=== PATIENT | male | born 1975 ===

== ENCOUNTER 2017-03-21 16:25 | Observation (INO) | payer MEDICAID, OTHER ==
[2017-03-21 17:55] LABS: BASO % 0.4 % (0.0-2.0); EOS # 0.1 K/uL (0.0-0.7); HEMATOCRIT 43.8 % (35.0-51.0); LYMPH # 1.7 K/uL (1.0-4.3); LYMPH % 16.6 % (20.0-40.0); MEAN CELL VOLUME 89.9 fL (80.0-94.0); MEAN CORPUSCULAR HEMOGLOBIN 30.9 pg (27.0-31.0); MEAN CORPUSCULAR HGB CONC 34.3 g/dL (33.0-37.0); MEAN PLATELET VOLUME 8.1 fL (7.2-11.7); MONO # 0.8 K/uL (0.0-0.8); MONO % 8.1 % (0.0-10.0); RED CELL DISTRIBUTION WIDTH 13.6 % (11.5-14.5); WHITE BLOOD COUNT 10.4 K/uL (4.8-10.8)
[2017-03-21 18:03] LABS: CHLORIDE 103 mmol/L (98-107); POTASSIUM 3.9 mmol/L (3.6-5.2); SODIUM 147 mmol/L (132-148)
[2017-03-21 18:05] LABS: AST/SGOT 17 U/L (17-59); BILIRUBIN,TOTAL 0.7 mg/dL (0.2-1.3); CARBON DIOXIDE 25 mmol/L (22-30); GFR AFRICAN-AMERICAN > 60
[2017-03-21 18:06] LABS: ALB/GLOB RATIO 1.3 (1.0-2.1); ALKALINE PHOSPHATASE 76 U/L (38-126); ALT/SGPT 33 U/L (21-72); BLOOD UREA NITROGEN 15 mg/dL (9-20); CALCIUM 8.8 mg/dl (8.6-10.4); GLUCOSE,RANDOM 103 mg/dL (75-110); TOTAL PROTEIN 8.1 g/dL (6.3-8.3)
[2017-03-21 18:07] LABS: RBC URINE 7 /hpf (0-3); URINE BACTERIA RARE (<OCC); URINE BILIRUBIN NEGATIVE (NEGATIVE); URINE BLOOD 1+ (NEGATIVE); URINE COLOR Yellow (YELLOW); URINE GLUCOSE (UA) NORMAL (Normal); URINE KETONE NEGATIVE (NEGATIVE); URINE LEUKOCYTE ESTERASE NEG Leu/uL (Negative); URINE PROTEIN NEGATIVE (NEGATIVE); URINE UROBILINOGEN NORMAL mg/dL (0.2-1.0); WBC URINE < 1 /hpf (0-5)
[2017-03-21 18:21] LABS: PARTIAL THROMBOPLASTIN TIME 29 SECONDS (21-34)
--- NOTE | 2017-03-21 18:40 | C.PDOC ---
History Of Present Illness <Rupa Carpoi - Last Filed: 03/21/17 19:16> <Mesha Castro - Last Filed: 03/21/17 19:51> 42 year old male presents to the ED with chest pain, headache, and feeling "shaky." Patient notes anxiety attacks over the last two weeks and denies having experiencing them prior to that. His doctor have him a prescription for Xanax but does not like to take them because it makes him "sleepy." Patient denies shortness of breath, weakness, numbness, or other complaints at this time. (Rupa Carpio) History Per: Patient History/Exam Limitations: no limitations Current Symptoms Are (Timing): Still Present Quality: Pressure Associated Symptoms: denies: Nausea, Dyspnea, Diaphoresis, Syncope Exacerbating Factors: None Recent travel outside of the [place]: No <Rupa Carpio - Last Filed: 03/21/17 19:16> <Mesha Castro - Last Filed: 03/21/17 19:51> Time Seen by Provider: 03/21/17 16:34 Chief Complaint (Nursing): Chest Pain Past Medical History Reviewed: Historical Data, Nursing Documentation, Vital Signs - Medical History PMH: Anxiety Family History: States: Unknown Family Hx - Social History Hx Alcohol Use: Yes Hx Substance Use: No - Immunization History Hx Tetanus Toxoid Vaccination: No Hx Influenza Vaccination: No Hx Pneumococcal Vaccination: No <Rupa Carpoi - Last Filed: 03/21/17 19:16> Review Of Systems Constitutional: Positive for: Other (feels "shakey" ). Negative for: Fever, Chills Cardiovascular: Positive for: Chest Pain. Negative for: Palpitations Gastrointestinal: Negative for: Nausea, Vomiting, Abdominal Pain, Diarrhea Neurological: Positive for: Headache. Negative for: Weakness, Numbness <Rupa Carpio - Last Filed: 03/21/17 19:16> Physical Exam - Physical Exam Appears: Non-toxic, No Acute Distress, Other (Patient is tremulous on exam. ) Skin: Warm, Dry Head: Atraumatic Eye(s): bilateral: Normal Inspection Oral Mucosa: Moist Neck: Supple Chest: Symmetrical, No Deformity, No Tenderness Cardiovascular: Rhythm Regular Respiratory: Normal Breath Sounds, No Rales, No Rhonchi, No Wheezing Gastrointestinal/Abdominal: Soft, No Tenderness, No Distention, No Guarding, No Rebound Extremity: Normal ROM, No Tenderness Neurological/Psych: Oriented x3, Normal Speech, Normal Cognition, Normal Motor, Normal Sensation <Rupa Carpio - Last Filed: 03/21/17 19:16> ED Course And Treatment - Laboratory Results Result Diagrams: 03/21/17 17:52 03/21/17 17:52 ECG: Interpreted By Me, Viewed By Me ECG Rhythm: Sinus Rhythm ECG Interpretation: No Acute Changes Interpretation Of ECG: Occasional PVCs. Rate From EC O2 Sat by Pulse Oximetry: 97 (room air ) - Radiology CXR: Interpreted by Me, Viewed By Me CXR Interpretation: Yes: No Acute Disease Progress Note: EKG, CXR, and blood work including thyroid function was ordered. Patient was given ativan. At 19:00 case was signed out to . TSH and dispo are pending. <Rupa Carpio - Last Filed: 03/21/17 19:16> - Laboratory Results Result Diagrams: 03/21/17 17:52 03/21/17 17:52 Progress Note: Pt was signed out to me at 7pm by Dr. Carpenter/CHRISTINA Carpio to f/up TSH and admit pt for observation due to cocaine chest pain. Pt admit to snorting cocaine last night. Reassessment Condition: Improved <Mesha Castro E - Last Filed: 03/21/17 19:51> Disposition - Disposition Disposition Time: 19:00 <Rupa Carpio - Last Filed: 03/21/17 19:16> Discussed With : Oral Guadarrama Comment: He accepted pt on hospitalist service. Doctor Will See Patient In The: Hospital Counseled Patient/Family Regarding: Studies Performed, Diagnosis - Disposition Disposition Time: 19:50 <Mesha Castro E - Last Filed: 03/21/17 19:51> - Disposition Disposition: HOSPITALIZED Condition: FAIR - Clinical Impression Clinical Impression: Chest pain, Cocaine abuse - Scribe Statement The provider has reviewed the documentation as recorded by the Scribe <Rupa Carpio - Last Filed: 03/21/17 19:16> <Mesha Castro E - Last Filed: 03/21/17 19:51> - Scribe Statement Chani Feldman All medical record entries made by the Scribe were at my direction and personally dictated by me. I have reviewed the chart and agree that the record accurately reflects my personal performance of the history, physical exam, medical decision making, and the department course for this patient. I have also personally directed, reviewed, and agree with the discharge instructions and disposition. (Rupa Carpio) Physician Patient Turnover Patient Signed Over To: Mesha Castro Handoff Comments: labs/dispo <Rupa Carpio - Last Filed: 03/21/17 19:16>
[2017-03-21 19:24] LABS: THYROID STIMULATING HORMONE 2.13 mIU/L (0.46-4.68)
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
[2017-03-22 01:45] VITALS: RESP 20
--- NOTE | 2017-03-22 06:12 | RAD ---
PROCEDURE: CHEST RADIOGRAPH, 1 VIEW HISTORY: Chest pain COMPARISON: None available. FINDINGS: LUNGS: Mild venous congestion. Upper lobe granulomatous changes. PLEURA: No pneumothorax or pleural fluid seen. CARDIOVASCULAR: Normal. OSSEOUS STRUCTURES: No significant abnormalities. VISUALIZED UPPER ABDOMEN: Normal. OTHER FINDINGS: None. IMPRESSION: Mild venous congestion. Upper lobe granulomatous changes.
[2017-03-22 07:38] LABS: BASO % 0.4 % (0.0-2.0); EOS # 0.1 K/uL (0.0-0.7); EOS % 1.4 % (0.0-4.0); HEMATOCRIT 40.2 % (35.0-51.0); LYMPH # 2.6 K/uL (1.0-4.3); LYMPH % 35.2 % (20.0-40.0); MEAN CELL VOLUME 90.4 fL (80.0-94.0); MEAN CORPUSCULAR HEMOGLOBIN 30.2 pg (27.0-31.0); MEAN CORPUSCULAR HGB CONC 33.4 g/dL (33.0-37.0); MEAN PLATELET VOLUME 8.6 fL (7.2-11.7); MONO # 0.6 K/uL (0.0-0.8); MONO % 7.7 % (0.0-10.0); RED CELL DISTRIBUTION WIDTH 13.5 % (11.5-14.5); WHITE BLOOD COUNT 7.5 K/uL (4.8-10.8)
[2017-03-22 08:14] LABS: CHLORIDE 102 mmol/L (98-107); POTASSIUM 3.7 mmol/L (3.6-5.2); SODIUM 144 mmol/L (132-148)
[2017-03-22 08:16] LABS: ALB/GLOB RATIO 1.3 (1.0-2.1); ALKALINE PHOSPHATASE 65 U/L (38-126); AST/SGOT 16 U/L (17-59); BILIRUBIN,TOTAL 0.9 mg/dL (0.2-1.3); BLOOD UREA NITROGEN 14 mg/dL (9-20); CARBON DIOXIDE 27 mmol/L (22-30); CHOLESTEROL 146 mg/dL (0-199); GFR AFRICAN-AMERICAN > 60; GLUCOSE,RANDOM 98 mg/dL (75-110)
[2017-03-22 08:17] LABS: ALT/SGPT 29 U/L (21-72); CALCIUM 8.8 mg/dl (8.6-10.4)
[2017-03-22 08:50] LABS: THYROID STIMULATING HORMONE 2.26 mIU/L (0.46-4.68)
--- NOTE | 2017-03-22 13:59 | CP.PCM.PN ---
<Bam Gillis - Last Filed: 03/22/17 13:53> Subjective - Date & Time of Evaluation Date of Evaluation: 03/22/17 Time of Evaluation: 13:53 - Subjective Subjective: PGY1 Note for Dr. Arizmendi HPI: Patient seen and examined at bedside. Stated his chest pain comes on infrequently and feels stabbing and then becomes like a "squeezing" sensation that is unrelated to activity. It is not related to food. Located in the epigastrum. Reproducible on exam. Patient smoked for 20 years, quit for a short time, smoking again. Overweight. Poor diet. wakes up every every night trying to catch his breath. Feels tired thru the day. Feels like he snores. Angry that his girlfriend is asking him to send her money even though she may be romantically involved with another man. States when he thinks about this he gets extremely agitated, mind races and starts he shaking. Objective - Vital Signs/Intake and Output Vital Signs (last 24 hours): Temp Pulse Resp BP Pulse Ox 97.7 F 94 H 20 133/85 99 03/22/17 08:42 03/22/17 10:04 03/22/17 08:42 03/22/17 08:42 03/22/17 08:42 - Labs Labs: 03/22/17 07:24 03/22/17 07:24 PT 11.2 SECONDS (9.7-12.2) 03/21/17 17:52 INR 1.0 03/21/17 17:52 APTT 29 SECONDS (21-34) 03/21/17 17:52 - Constitutional Appears: Well, Non-toxic, No Acute Distress - Head Exam Head Exam: ATRAUMATIC, NORMAL INSPECTION, NORMOCEPHALIC - Eye Exam Eye Exam: EOMI - ENT Exam ENT Exam: Mucous Membranes Moist - Respiratory Exam Respiratory Exam: Clear to Ausculation Bilateral, NORMAL BREATHING PATTERN - Cardiovascular Exam Cardiovascular Exam: REGULAR RHYTHM - GI/Abdominal Exam GI & Abdominal Exam: Soft, Normal Bowel Sounds. absent: Distended, Tenderness - Extremities Exam Extremities Exam: absent: Joint Swelling, Tenderness - Neurological Exam Neurological Exam: Alert, Awake, Oriented x3 - Psychiatric Exam Psychiatric exam: Agitated, Anxious - Skin Skin Exam: Dry, Intact, Normal Color, Warm Assessment and Plan - Assessment and Plan (Free Text) Assessment: Chest pain R/O ACS * Telemetry * KELLI: Negative * EKG: Sinus rhythm, with occasional PVCs * TSH: 2.13 * Lipid Panel * TG 170 * Chol 146 * LDL 105 * HDL 34 * Crestor 20 PO QD Cards (Alec) - F/U Reccs * Stress test? Anxiety Psychiatry Consult, Dr. Carballo * F/u recommendation VALERIANO * overnight sleep study for Obstructive sleep apnea * F/U at clinic for workup Cocaine abuse UDS: Positive for cocaine metabolites Prophylactic measure Ambulates Scds <Anthony Arizmendi - Last Filed: 03/22/17 19:04> Objective - Vital Signs/Intake and Output Vital Signs (last 24 hours): Temp Pulse Resp BP Pulse Ox 97.5 F L 59 L 20 120/74 97 03/22/17 15:00 03/22/17 18:00 03/22/17 15:00 03/22/17 15:00 03/22/17 15:00 - Medications Medications: Current Medications Rosuvastatin Calcium (Crestor) 20 mg PO HS MACHO - Labs Labs: 03/22/17 07:24 03/22/17 07:24 PT 11.2 SECONDS (9.7-12.2) 03/21/17 17:52 INR 1.0 03/21/17 17:52 APTT 29 SECONDS (21-34) 03/21/17 17:52 Attending/Attestation - Attestation I have personally seen and examined this patient.: Yes I have fully participated in the care of the patient.: Yes I have reviewed all pertinent clinical information, including history, physical exam and plan: Yes Notes (Text): 03/22/17 19:02 Patient was seen and examined at 3 PM Exam, Assessment and Plan were thoroughly gone over with the resident. Pain in the chest was reproducible at the 3rd/4th left intercostal space Will speak with Dr. Michael concerning if further Cardiology workup is needed. Anthony Arizmendi D.O.
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
--- NOTE | 2017-03-23 00:16 | CARD ---
APPROVED REPORT EKG Measurement Heart [id number] <Conclusion> Normal sinus rhythm Normal ECG
--- NOTE | 2017-03-23 00:28 | CARD ---
APPROVED REPORT EKG Measurement Heart [id number] <Conclusion> Sinus rhythm with occasional premature ventricular complexes and fusion complexes Otherwise normal ECG
[2017-03-23 00:46] VITALS: O2SAT 98
--- NOTE | 2017-03-23 06:23 | CP.PCM.DIS ---
Addendum entered and electronically signed by Bam Gillis DO 03/23/17 16: 23: Hospital Course Patient is a 42 year old male who presents the ED with complaints of chest pressure, headache and B/L UE and LE shakiness that started today while watching TV with family and friends, with symptoms lasting between 30mins to an hour. Patient reports that these symptoms started a week ago, with his first episode last week Tuesday and his second episode last week . Patient describes his chest pain as a 8/10 intermittent chest pressure without radiation. Patient reports that these episodes lasted an hour and was alleviated with a "calming pill" that was given to him by his brother and sister -in-law. Patient stated that his first episode was after a phone conversation with his ex-. Patient reports that he has been dealing with new life stressors due to his recent divorce from his in [place]. Patient did report that he had about 10-11 (24 oz) beer yesterday and does have a history of cocaine use, with last use being 1 months ago. Patient admits to fever, headache, dizziness, blurry vision, chest pain, palpitation, diaphoresis but denies SOB, nausea, vomiting, abdominal pain. Patient is a 42 year old male presented to the ED with chest pain, headache, and feeling shaky. An EKG was done on admission in the ER. The study noted sinus rhythm with occasional premature ventricular complexes and fusion complexes. Due to the patients history of anxiety and hearing non-threatening voice, Dr. Hunt was consulted. Because of his episodes of shakiness and chest tightening, Dr. Michael was consulted and cleared him for discharge. Dr. Hunt stated the patient was stable for discharge. Dr. Hunt recommends him to f/u in the clinic for care of major depressive disorder. Patient is well appearing at bedside and much calmer than our initial encounter. Patient is ready for discharge and will be given the appropriate materials need to schedule an appointment in the clinic. Original Note: <Bam Gillis - Last Filed: 03/23/17 06:21> Provider - Provider Date of Admission: 03/21/17 19:55 Attending physician: Oral Guadarrama MD Primary care physician: Clinic Consults: Cards: Alec Psych: Gilbert Time Spent in preparation of Discharge (in minutes): 45 Diagnosis - Discharge Diagnosis (1) Major depression Status: Chronic Priority: Medium Hospital Course - Lab Results Lab Results: Most Recent Lab Values WBC 7.5 K/uL (4.8-10.8) 03/22/17 07:24 RBC 4.45 Mil/uL (4.40-5.90) 03/22/17 07:24 Hgb 13.4 g/dL (12.0-18.0) 03/22/17 07:24 Hct 40.2 % (35.0-51.0) 03/22/17 07:24 MCV 90.4 fL (80.0-94.0) 03/22/17 07:24 MCH 30.2 pg (27.0-31.0) 03/22/17 07:24 MCHC 33.4 g/dL (33.0-37.0) 03/22/17 07:24 RDW 13.5 % (11.5-14.5) 03/22/17 07:24 Plt Count 231 K/uL (130-400) 03/22/17 07:24 MPV 8.6 fL (7.2-11.7) 03/22/17 07:24 Neut % (Auto) 55.3 % (50.0-75.0) 03/22/17 07:24 Lymph % (Auto) 35.2 % (20.0-40.0) 03/22/17 07:24 Beadle % (Auto) 7.7 % (0.0-10.0) 03/22/17 07:24 Eos % (Auto) 1.4 % (0.0-4.0) 03/22/17 07:24 Baso % (Auto) 0.4 % (0.0-2.0) 03/22/17 07:24 Neut # 4.1 K/uL (1.8-7.0) 03/22/17 07:24 Lymph # 2.6 K/uL (1.0-4.3) 03/22/17 07:24 Beadle # 0.6 K/uL (0.0-0.8) 03/22/17 07:24 Eos # 0.1 K/uL (0.0-0.7) 03/22/17 07:24 Baso # 0.0 K/uL (0.0-0.2) 03/22/17 07:24 PT 11.2 SECONDS (9.7-12.2) 03/21/17 17:52 INR 1.0 03/21/17 17:52 APTT 29 SECONDS (21-34) 03/21/17 17:52 D-Dimer, Quantitative < 200 ng/mlDDU (0-243) 03/21/17 17:52 Sodium 144 mmol/L (132-148) 03/22/17 07:24 Potassium 3.7 mmol/L (3.6-5.2) 03/22/17 07:24 Chloride 102 mmol/L (98-107) 03/22/17 07:24 Carbon Dioxide 27 mmol/L (22-30) 03/22/17 07:24 Anion Gap 18 (10-20) 03/22/17 07:24 BUN 14 mg/dL (9-20) 03/22/17 07:24 Creatinine 1.0 MG/DL (0.8-1.5) 03/22/17 07:24 Est GFR ( Amer) > 60 03/22/17 07:24 Est GFR (Non-Af Amer) > 60 03/22/17 07:24 Random Glucose 98 mg/dL (75-110) 03/22/17 07:24 Hemoglobin A1c 5.7 % (4.2-6.5) 03/22/17 07:24 Calcium 8.8 mg/dl (8.6-10.4) 03/22/17 07:24 Total Bilirubin 0.9 mg/dL (0.2-1.3) 03/22/17 07:24 AST 16 U/L (17-59) L 03/22/17 07:24 ALT 29 U/L (21-72) 03/22/17 07:24 Alkaline Phosphatase 65 U/L (38-126) 03/22/17 07:24 Total Creatine Kinase 62 U/L (55-170) 03/22/17 07:24 CK-MB (Mass) 1.30 ng/mL (0.0-3.38) 03/22/17 07:24 Troponin I < 0.0120 ng/mL (0.00-0.120) 03/21/17 17:52 Troponin I, Quant < 0.0120 ng/mL (0.00-0.120) 03/22/17 07:24 Total Protein 7.0 g/dL (6.3-8.3) 03/22/17 07:24 Albumin 4.0 g/dL (3.5-5.0) 03/22/17 07:24 Globulin 3.0 gm/dL (2.2-3.9) 03/22/17 07:24 Albumin/Globulin Ratio 1.3 (1.0-2.1) 03/22/17 07:24 Triglycerides 170 mg/dL (0-149) H 03/22/17 07:24 Cholesterol 146 mg/dL (0-199) 03/22/17 07:24 LDL Cholesterol Direct 105 mg/dL (0-129) 03/22/17 07:24 HDL Cholesterol 34 mg/dL (30-70) 03/22/17 07:24 TSH 3rd Generation 2.26 mIU/L (0.46-4.68) 03/22/17 07:24 Urine Color Yellow (YELLOW) 03/21/17 17:52 Urine Clarity Clear (Clear) 03/21/17 17:52 Urine pH 6.0 (5.0-8.0) 03/21/17 17:52 Ur Specific [place] 1.015 (1.003-1.030) 03/21/17 17:52 Urine Protein Negative mg/dL (NEGATIVE) 03/21/17 17:52 Urine Glucose (UA) Normal mg/dL (Normal) 03/21/17 17:52 Urine Ketones Negative mg/dL (NEGATIVE) 03/21/17 17:52 Urine Blood 1+ (NEGATIVE) H 03/21/17 17:52 Urine Nitrate Negative (NEGATIVE) 03/21/17 17:52 Urine Bilirubin Negative (NEGATIVE) 03/21/17 17:52 Urine Urobilinogen Normal mg/dL (0.2-1.0) 03/21/17 17:52 Ur Leukocyte Esterase Neg Maday/uL (Negative) 03/21/17 17:52 Urine WBC (Auto) < 1 /hpf (0-5) 03/21/17 17:52 Urine RBC (Auto) 7 /hpf (0-3) H 03/21/17 17:52 Urine Bacteria Rare (<OCC) 03/21/17 17:52 Urine Opiates Screen Negative (NEGATIVE) 03/21/17 17:52 Urine Methadone Screen Negative (NEGATIVE) 03/21/17 17:52 Ur Barbiturates Screen Negative (NEGATIVE) 03/21/17 17:52 Ur Phencyclidine Scrn Negative (NEGATIVE) 03/21/17 17:52 Ur Amphetamines Screen Negative (NEGATIVE) 03/21/17 17:52 U Benzodiazepines Scrn Negative (NEGATIVE) 03/21/17 17:52 U Oth Cocaine Metabols Positive (NEGATIVE) 03/21/17 17:52 U Cannabinoids Screen Negative (NEGATIVE) 03/21/17 17:52 - Date & Time of H&P Date of H&P: 03/21/17 Time of H&P: 22:21 Discharge Exam - Head Exam Head Exam: ATRAUMATIC, NORMAL INSPECTION, NORMOCEPHALIC - Eye Exam Eye Exam: EOMI Pupil Exam: NORMAL ACCOMODATION - ENT Exam ENT Exam: Mucous Membranes Moist - Respiratory Exam Respiratory Exam: Clear to PA & Lateral, NORMAL BREATHING PATTERN. absent: Rales, Wheezes, Respiratory Distress, Stridor - Cardiovascular Exam Cardiovascular Exam: Gallop, REGULAR RHYTHM, RRR. absent: JVD, Rubs, Systolic Murmur - GI/Abdominal Exam GI & Abdominal Exam: Normal Bowel Sounds, Soft. absent: Distended, Tenderness - Neurological Exam Neurological exam: Alert, Oriented x3 - Psychiatric Exam Psychiatric exam: Normal Affect, Normal Mood - Skin Skin Exam: Dry, Intact, Normal Color, Warm Discharge Plan - Discharge Medications Prescriptions: Atorvastatin [Lipitor] 40 mg PO DAILY #30 tab Gabapentin [Neurontin] 300 mg PO BID #60 cap PARoxetine [Paxil] 10 mg PO DAILY #30 tab - Follow Up Plan Condition: STABLE Disposition: HOME/ ROUTINE Instructions: Gabapentin (By mouth), Paroxetine (By mouth), Atorvastatin (By mouth), Chest Pain (DC), Depression (DC) Additional Instructions: From a psychiatric standpoint, patient is clear and stable for discharge. Please follow up in our clinic for care of your major depressive disorder. From a cardiac standpoint, patient is stable and clear for discharge. From a medical standpoint, patient is stable and clear for discharge. Please come t the clinic in one weeks time for follow up of your condition as well as to monitor you as you have started new medications (Paxil) If symptoms return please come back to the ER Prescriptions will be provided to you upon discharge. Referrals: [facility] [Outside] Dm Michael MD [Staff Provider] - Ale Hunt MD [Staff Provider] - <Anthony Arizmendi - Last Filed: 03/23/17 17:38> Provider - Provider Date of Admission: 03/21/17 19:55 Attending physician: Oral Guadarrama MD Hospital Course - Lab Results Lab Results: Most Recent Lab Values WBC 7.5 K/uL (4.8-10.8) 03/22/17 07:24 RBC 4.45 Mil/uL (4.40-5.90) 03/22/17 07:24 Hgb 13.4 g/dL (12.0-18.0) 03/22/17 07:24 Hct 40.2 % (35.0-51.0) 03/22/17 07:24 MCV 90.4 fL (80.0-94.0) 03/22/17 07:24 MCH 30.2 pg (27.0-31.0) 03/22/17 07:24 MCHC 33.4 g/dL (33.0-37.0) 03/22/17 07:24 RDW 13.5 % (11.5-14.5) 03/22/17 07:24 Plt Count 231 K/uL (130-400) 03/22/17 07:24 MPV 8.6 fL (7.2-11.7) 03/22/17 07:24 Neut % (Auto) 55.3 % (50.0-75.0) 03/22/17 07:24 Lymph % (Auto) 35.2 % (20.0-40.0) 03/22/17 07:24 [place] % (Auto) 7.7 % (0.0-10.0) 03/22/17 07:24 Eos % (Auto) 1.4 % (0.0-4.0) 03/22/17 07:24 Baso % (Auto) 0.4 % (0.0-2.0) 03/22/17 07:24 Neut # 4.1 K/uL (1.8-7.0) 03/22/17 07:24 Lymph # 2.6 K/uL (1.0-4.3) 03/22/17 07:24 Beadle # 0.6 K/uL (0.0-0.8) 03/22/17 07:24 Eos # 0.1 K/uL (0.0-0.7) 03/22/17 07:24 Baso # 0.0 K/uL (0.0-0.2) 03/22/17 07:24 PT 11.2 SECONDS (9.7-12.2) 03/21/17 17:52 INR 1.0 03/21/17 17:52 APTT 29 SECONDS (21-34) 03/21/17 17:52 D-Dimer, Quantitative < 200 ng/mlDDU (0-243) 03/21/17 17:52 Sodium 144 mmol/L (132-148) 03/22/17 07:24 Potassium 3.7 mmol/L (3.6-5.2) 03/22/17 07:24 Chloride 102 mmol/L (98-107) 03/22/17 07:24 Carbon Dioxide 27 mmol/L (22-30) 03/22/17 07:24 Anion Gap 18 (10-20) 03/22/17 07:24 BUN 14 mg/dL (9-20) 03/22/17 07:24 Creatinine 1.0 MG/DL (0.8-1.5) 03/22/17 07:24 Est GFR ( Amer) > 60 03/22/17 07:24 Est GFR (Non-Af Amer) > 60 03/22/17 07:24 Random Glucose 98 mg/dL (75-110) 03/22/17 07:24 Hemoglobin A1c 5.7 % (4.2-6.5) 03/22/17 07:24 Calcium 8.8 mg/dl (8.6-10.4) 03/22/17 07:24 Total Bilirubin 0.9 mg/dL (0.2-1.3) 03/22/17 07:24 AST 16 U/L (17-59) L 03/22/17 07:24 ALT 29 U/L (21-72) 03/22/17 07:24 Alkaline Phosphatase 65 U/L (38-126) 03/22/17 07:24 Total Creatine Kinase 62 U/L (55-170) 03/22/17 07:24 CK-MB (Mass) 1.30 ng/mL (0.0-3.38) 03/22/17 07:24 Troponin I < 0.0120 ng/mL (0.00-0.120) 03/21/17 17:52 Troponin I, Quant < 0.0120 ng/mL (0.00-0.120) 03/22/17 07:24 Total Protein 7.0 g/dL (6.3-8.3) 03/22/17 07:24 Albumin 4.0 g/dL (3.5-5.0) 03/22/17 07:24 Globulin 3.0 gm/dL (2.2-3.9) 03/22/17 07:24 Albumin/Globulin Ratio 1.3 (1.0-2.1) 03/22/17 07:24 Triglycerides 170 mg/dL (0-149) H 03/22/17 07:24 Cholesterol 146 mg/dL (0-199) 03/22/17 07:24 LDL Cholesterol Direct 105 mg/dL (0-129) 03/22/17 07:24 HDL Cholesterol 34 mg/dL (30-70) 03/22/17 07:24 TSH 3rd Generation 2.26 mIU/L (0.46-4.68) 03/22/17 07:24 Urine Color Yellow (YELLOW) 03/21/17 17:52 Urine Clarity Clear (Clear) 03/21/17 17:52 Urine pH 6.0 (5.0-8.0) 03/21/17 17:52 Ur Specific [place] 1.015 (1.003-1.030) 03/21/17 17:52 Urine Protein Negative mg/dL (NEGATIVE) 03/21/17 17:52 Urine Glucose (UA) Normal mg/dL (Normal) 03/21/17 17:52 Urine Ketones Negative mg/dL (NEGATIVE) 03/21/17 17:52 Urine Blood 1+ (NEGATIVE) H 03/21/17 17:52 Urine Nitrate Negative (NEGATIVE) 03/21/17 17:52 Urine Bilirubin Negative (NEGATIVE) 03/21/17 17:52 Urine Urobilinogen Normal mg/dL (0.2-1.0) 03/21/17 17:52 Ur Leukocyte Esterase Neg Maday/uL (Negative) 03/21/17 17:52 Urine WBC (Auto) < 1 /hpf (0-5) 03/21/17 17:52 Urine RBC (Auto) 7 /hpf (0-3) H 03/21/17 17:52 Urine Bacteria Rare (<OCC) 03/21/17 17:52 Urine Opiates Screen Negative (NEGATIVE) 03/21/17 17:52 Urine Methadone Screen Negative (NEGATIVE) 03/21/17 17:52 Ur Barbiturates Screen Negative (NEGATIVE) 03/21/17 17:52 Ur Phencyclidine Scrn Negative (NEGATIVE) 03/21/17 17:52 Ur Amphetamines Screen Negative (NEGATIVE) 03/21/17 17:52 U Benzodiazepines Scrn Negative (NEGATIVE) 03/21/17 17:52 U Oth Cocaine Metabols Positive (NEGATIVE) 03/21/17 17:52 U Cannabinoids Screen Negative (NEGATIVE) 03/21/17 17:52 Attending/Attestation - Attestation I have personally seen and examined this patient.: Yes I have fully participated in the care of the patient.: Yes I have reviewed all pertinent clinical information, including history, physical exam and plan: Yes Notes (Text): 03/23/17 17:38 Discharge was discussed with the Resident
[2017-03-23 08:28] VITALS: BP 122/82; PULSE 58; TEMP 97.9
[2017-03-23] MEDS ORDERED: Multiple Vitamins Tab PO SCH (10:00)
== END 2017-03-23 11:43 | disposition home or self-care (01) ==
LOC: C.ER 16:25 → C.5T 19:55 → C.9E 19:55 → C.5S 03-23 09:21
PROVIDERS: ADMIT Internal Medicine; ATTEND Internal Medicine
DX: F32.9 Major depressive disorder, single episode, unspecified (principal); R07.9 Chest pain, unspecified; F14.20 Cocaine dependence, uncomplicated; F41.9 Anxiety disorder, unspecified; R51 Headache
CPT/HCPCS: 36415; 71010; 80053; 80061; 81001; 82550; 82553; 83036; 84443; 84484; 85025; 85378; 85610; 85730; 93005; 99285; G0378; G0480

== ENCOUNTER 2017-08-13 10:57 | Emergency (ER) | payer MEDICAID, OTHER ==
[2017-08-13 11:22] VITALS: TEMP 98.1
--- NOTE | 2017-08-13 13:15 | C.PDOC ---
History Of Present Illness 42 yo male c/o cough, subjective fever, and sore throat for three days. Pt notes when he coughs his chest hurts. It is painful to swallow, its worse at night then in the day. Has not taken any medication for the symptoms. Denies SOB , headaches, neck pain, abdominal pain, difficulty breathing or swallowing. Time Seen by Provider: 08/13/17 11:44 Chief Complaint (Nursing): Flu-like Symptoms History Per: Patient History/Exam Limitations: no limitations Onset/Duration Of Symptoms: Days Current Symptoms Are (Timing): Still Present Location Of Pain: Throat Associated Symptoms: Fever, Chills, Sore Throat, Cough, Nasal Congestion, Vomiting (resolved yesterday), Diarrhea Past Medical History Vital Signs: Last Vital Signs Temp 98.1 F 08/13/17 11:18 Pulse 77 08/13/17 13:37 Resp 16 08/13/17 13:37 BP 124/75 08/13/17 13:37 Pulse Ox 99 08/13/17 13:37 - Medical History PMH: Anxiety, Hypercholesterolemia Denies: Chronic Kidney Disease Family History: States: Unknown Family Hx - Social History Hx Alcohol Use: Yes (Social) Hx Substance Use: No - Immunization History Hx Tetanus Toxoid Vaccination: No Hx Influenza Vaccination: No Hx Pneumococcal Vaccination: No Review Of Systems Except As Marked, All Systems Reviewed And Found Negative. Constitutional: Positive for: Fever, Chills ENT: Positive for: Nose Congestion Cardiovascular: Positive for: Chest Pain Respiratory: Positive for: Cough Gastrointestinal: Positive for: Vomiting, Diarrhea Physical Exam - Physical Exam Appears: Well, Non-toxic, No Acute Distress Skin: Normal Color, Warm, Dry Head: Atraumatic, Normacephalic Eye(s): bilateral: Normal Inspection, PERRL, EOMI Ear(s): Bilateral: Normal Nose: Normal Oral Mucosa: Moist Throat: Erythema, No Exudate, No Drooling Neck: Normal, Normal ROM, Supple Lymphatic: Normal Exam Chest: Symmetrical Cardiovascular: Rhythm Regular Respiratory: Normal Breath Sounds, No Accessory Muscle Use Gastrointestinal/Abdominal: Normal Exam Back: Normal Inspection Extremity: Normal ROM Neurological/Psych: Oriented x3, Normal Speech ED Course And Treatment ECG: Interpreted By Me (Dr Castro), Viewed By Me ECG Rhythm: Sinus Rhythm Rate From EC O2 Sat by Pulse Oximetry: 98 - Radiology CXR: Interpreted by Me, Viewed By Me CXR Interpretation: Yes: No Acute Disease Progress Note: Discussed with pt signs and symptoms of concern. Symptoms secondary to viral illness, symtpomatic treatment and instructed to return if symtpoms persist or worsen. CAse discussed with Dr Castro , agreed upon plan and discharge. Disposition - Disposition Referrals: Shaik Marquez MD [Staff Provider] - Disposition: HOME/ ROUTINE Disposition Time: 13:21 Condition: STABLE Additional Instructions: Vaya a rubio mdico o la clnica en 1-3 barragan sin falta, para mas evaluacin. [facility] los medicamentos zach indicado. Volver a la manuel de emergencia en cualquier momento si los sntomas persisten o empeoran. Prescriptions: Guaifen/Dextromethorphan/PE [Mucinex Fast-Max Congest-Cough] 1 each PO Q6 #20 tablet Naproxen [Naprosyn] 1 tab PO BID PRN #20 tab PRN Reason: Pain Oseltamivir Phosphate [Tamiflu] 75 mg PO BID #10 capsule Instructions: Influenza (ED) Forms: [employer] (Citizen Of [place]) Print Language: ARMENIAN - Clinical Impression Clinical Impression: Influenza
[2017-08-13 13:38] VITALS: BP 124/75; PULSE 77; RESP 16
--- NOTE | 2017-08-13 13:42 | RAD ---
Chest x-ray two views History: Chest pain. Comparison: 03/21/2017 Findings: Mild venous congestion. Heart size within normal limits. Impression: Mild venous congestion.
[2017-08-13 21:13] VITALS: O2SAT 98
--- NOTE | 2017-08-15 22:53 | CARD ---
APPROVED REPORT EKG Measurement Heart [id number] <Conclusion> Normal sinus rhythm Normal ECG
== END 2017-08-13 13:38 | disposition home or self-care (01) ==
LOC: C.ER 10:57
DX: J11.1 Influenza due to unidentified influenza virus with other respiratory manifestations (principal); E78.00 Pure hypercholesterolemia, unspecified

== ENCOUNTER 2017-08-22 22:14 | Emergency (ER) | payer SELFPAY ==
[2017-08-22 22:24] VITALS: BP 129/86; PULSE 88; RESP 18; TEMP 97.6; O2SAT 99
--- NOTE | 2017-08-22 23:39 | C.PDOC ---
History Of Present Illness 42 year old male presents to the ER after he was using earbuds while on a phone call and felt a jolt of electricity into his right ear, since then he has been having discomfort and pain. Denies headache, dizziness, LOC, or draining from right ear. Time Seen by Provider: 08/22/17 22:39 Chief Complaint (Nursing): ENT Problem History Per: Patient History/Exam Limitations: None Onset/Duration Of Symptoms: Hrs Current Symptoms Are (Timing): Still Present Quality (Ear): Other (Pain/Discomfort) Anticoagulant/Antiplatlet Use?: No Past Medical History Reviewed: Historical Data, Nursing Documentation, Vital Signs Vital Signs: Last Vital Signs Temp 97.6 F 08/22/17 22:22 Pulse 88 08/22/17 22:22 Resp 18 08/22/17 22:22 BP 129/86 08/22/17 22:22 Pulse Ox 99 08/23/17 03:18 - Medical History PMH: Anxiety, Hypercholesterolemia Family History: States: Unknown Family Hx - Social History Hx Alcohol Use: Yes (Social) Hx Substance Use: No - Immunization History Hx Tetanus Toxoid Vaccination: No Hx Influenza Vaccination: Yes Hx Pneumococcal Vaccination: No Review Of Systems ENT: Positive for: Ear Pain Neurological: Negative for: Headache, Dizziness, Other (LOC) Physical Exam - Physical Exam Appears: Non-toxic, No Acute Distress Skin: Normal Color, Warm, Dry Head: Atraumatic, Normacephalic Eye(s): bilateral: Normal Inspection Ear(s): Left: Normal, Right: Other (Whitish discoloration to TM, possibly chronic. No erythema bulging, or bleeding.) Throat: Normal ED Course And Treatment O2 Sat by Pulse Oximetry: 99 (room air) Pulse Ox Interpretation: Normal Progress Note: Motrin administered for pain with improvement. Patient is resting comfortably in no acute distress. Will discharge home with instructions to follow up with PMD. Disposition Counseled Patient/Family Regarding: Diagnosis, Need For Followup - Disposition Referrals: Erasmo Blair MD [Staff Provider] - Disposition: HOME/ ROUTINE Disposition Time: 23:38 Condition: STABLE Additional Instructions: Tylenol or advil for pain Follow up with PMD or ENT - May call for appointment Return to ER if worse Instructions: Earache (ED) Forms: [email or web address] (Japanese) - Clinical Impression Clinical Impression: Otalgia, right ear - PA / BARTACKER / Resident Statement MD/DO has reviewed & agrees with the documentation as recorded. - Scribe Statement The provider has reviewed the documentation as recorded by the Scribadan Alfaro All medical record entries made by the Eliibadan were at my direction and personally dictated by me. I have reviewed the chart and agree that the record accurately reflects my personal performance of the history, physical exam, medical decision making, and the department course for this patient. I have also personally directed, reviewed, and agree with the discharge instructions and disposition.
== END 2017-08-22 23:59 | disposition home or self-care (01) ==
LOC: SUPCPDRO 22:14 → C.ER 22:14
DX: H92.01 Otalgia, right ear (principal)

== ENCOUNTER 2018-05-07 13:03 | Emergency (ER) | payer MEDICAID ==
[2018-05-07 13:12] VITALS: BMI 36.8
[2018-05-07 13:49] VITALS: O2SAT 98
--- NOTE | 2018-05-07 13:49 | C.PDOC ---
History Of Present Illness 43 years old male with Hx of anxiety presents to ED for complaints of recurrent episode of dizziness that began 1:30PM today. Patient reports he smokes 1 pack and a half of cigarettes a day. Denies sleep apnea or snoring. Patient also states he went back to sleep multiple times then symptoms resolved bur as he walked to work normally he had another episode while standing. Patient states mother dies of sudden heart attack and father from a stroke and accordingly he is anxious. Time Seen by Provider: 05/07/18 13:33 Chief Complaint (Nursing): Dizziness/Lightheaded History Per: Patient History/Exam Limitations: no limitations Onset/Duration Of Symptoms: Hrs Current Symptoms Are (Timing): Still Present Associated Symptoms Preceding Syncopal Episode: No Predromal Symptoms (Sudden Onset) Seizure Or Post-ictal Symptoms: None Fall Associated With With Symptoms: No Recent travel outside of the [place]: No - Symptoms Of CVA Recent Aspirin Use: Unknown Current Coumadin Use?: Unknown Recent Head Trauma: No Past Medical History Reviewed: Historical Data, Nursing Documentation, Vital Signs Vital Signs: Last Vital Signs Temp 98.8 F 05/07/18 13:14 Pulse 90 05/07/18 13:14 Resp 18 05/07/18 13:14 BP 130/84 05/07/18 13:14 Pulse Ox 98 05/07/18 13:14 - Medical History PMH: Anxiety, Depression, Hypercholesterolemia Surgical History: No Surg Hx Family History: States: Unknown Family Hx - Social History Hx Alcohol Use: Yes (Social) Hx Substance Use: No - Immunization History Hx Tetanus Toxoid Vaccination: No Hx Influenza Vaccination: Yes (2017) Hx Pneumococcal Vaccination: No Review Of Systems Constitutional: Negative for: Fever, Chills Gastrointestinal: Negative for: Nausea, Vomiting, Abdominal Pain, Diarrhea Skin: Negative for: Rash Neurological: Positive for: Dizziness. Negative for: Weakness, Numbness, Headache Psych: Positive for: Anxiety Physical Exam - Physical Exam Appears: Non-toxic, No Acute Distress, Other (Morbidly obese. Anxious.) Skin: Normal Color, Warm, Dry, No Rash Head: Atraumatic, Normacephalic Eye(s): bilateral: Normal Inspection, PERRL, EOMI Oral Mucosa: Moist Neck: Normal ROM, Supple Chest: Symmetrical, No Tenderness Cardiovascular: Rhythm Regular, Murmur (holosystolic ) Respiratory: Normal Breath Sounds, No Decreased Breath Sounds, No Rales, No Rhonchi, No Wheezing Gastrointestinal/Abdominal: Bowel Sounds (Active ), Soft, No Tenderness Extremity: Bilateral: Atraumatic, Normal Color And Temperature, Normal ROM Pulses: Left Radial: Normal, Right Radial: Normal Neurological/Psych: Oriented x3, Normal Speech, Normal Motor, Normal Sensation Gait: Steady ED Course And Treatment - Laboratory Results Result Diagrams: 05/07/18 14:08 05/07/18 14:08 Lab Interpretation: Normal (trop neg, d-dimer neg.) ECG: Interpreted By Me ECG Rhythm: Sinus Rhythm ECG Interpretation: Normal Rate From EC O2 Sat by Pulse Oximetry: 98 (RA) Pulse Ox Interpretation: Normal - Radiology CXR: Interpreted by Me CXR Interpretation: Yes: No Acute Disease - Other Rad CXR X-Ray: Viewed By Me, Read By Radiologist Interpretation: IMPRESSION: Mild venous congestion. Progress Note: asa, xanax PO Reevaluation Time: 15:01 Reassessment Condition: Improved Medical Decision Making Medical Decision Making: panic anxiety vs vasovagal normal w/u refer for sleep study and opt psych f/u. Plan: * Aspirin * Xanax * Urinalysis * EKG * Blood work * CXR Disposition Doctor Will See Patient In The: Office Counseled Patient/Family Regarding: Studies Performed, Diagnosis - Disposition Referrals: Alcoholics Anonymous [Outside] [facility] [Outside] [facility] [Outside] [facility] [Outside] [facility] [Outside] [facility] [Outside] Jeff Carty MD [Staff Provider] - Disposition: HOME/ ROUTINE Disposition Time: 15:01 Condition: GOOD Additional Instructions: evaluacion negativo Nessa de fumar baja de peso Sigue con CRC- servicios psychiatricos, para tratamientos por rubio anxiedad Suspechamos que Ud tiene Apnea de Sueno Llama hacer estudio de sueno Dr. Carty- especialista de sueno Instructions: Anxiety, Adult (DC), Obstructive Sleep Apnea, Adult (DC), Vasovagal Response (DC) Forms: [employer] (Turkish) Print Language: SETSWANA - Clinical Impression Clinical Impression: Anxiety, Near syncope - Scribe Statement The provider has reviewed the documentation as recorded by the Scribe Kaia Gonsalezwfik All medical record entries made by the Reddy were at my direction and personally dictated by me. I have reviewed the chart and agree that the record accurately reflects my personal performance of the history, physical exam, medical decision making, and the department course for this patient. I have also personally directed, reviewed, and agree with the discharge instructions and disposition.
[2018-05-07] MEDS ORDERED: Aspirin 325 mg EC Tablets PO STA (14:03)
[2018-05-07 14:11] LABS: BASO % 0.6 % (0.0-2.0); EOS # 0.1 K/uL (0.0-0.7); EOS % 1.7 % (0.0-4.0); HEMOGLOBIN 13.6 g/dL (12.0-18.0); LYMPH # 1.9 K/uL (1.0-4.3); LYMPH % 23.7 % (20.0-40.0); MEAN CORPUSCULAR HEMOGLOBIN 31.6 pg (27.0-31.0); MEAN CORPUSCULAR HGB CONC 34.7 g/dL (33.0-37.0); MEAN PLATELET VOLUME 8.3 fL (7.2-11.7); MONO # 0.5 K/uL (0.0-0.8); MONO % 6.4 % (0.0-10.0); NEUT # 5.4 K/uL (1.8-7.0); NEUT % 67.6 % (50.0-75.0); RBC 4.32 Mil/uL (4.40-5.90); RED CELL DISTRIBUTION WIDTH 13.4 % (11.5-14.5)
[2018-05-07 14:23] LABS: ALB/GLOB RATIO 1.4 (1.0-2.1); ALBUMIN 4.2 g/dL (3.5-5.0); ALT/SGPT 41 U/L (21-72); AST/SGOT 19 U/L (17-59); BLOOD UREA NITROGEN 14 mg/dL (9-20); CALCIUM 9.1 mg/dl (8.6-10.4); GFR NON-AFRICAN AMERICAN > 60
[2018-05-07] MEDS ORDERED: Aspirin 325 mg EC Tablets PO ONE (14:23)
[2018-05-07 14:41] LABS: URINE BILIRUBIN NEGATIVE (NEGATIVE); URINE BLOOD NEGATIVE (NEGATIVE); URINE CLARITY Clear (Clear); URINE COLOR Yellow (YELLOW); URINE GLUCOSE (UA) NORMAL (Normal); URINE LEUKOCYTE ESTERASE NEG Leu/uL (Negative); URINE PROTEIN NEGATIVE (NEGATIVE); URINE UROBILINOGEN NORMAL mg/dL (0.2-1.0)
[2018-05-07 14:43] LABS: BARBITURATES, UR NEGATIVE (NEGATIVE); BENZODIAZEPINES, UR NEGATIVE (NEGATIVE); OPIATES, UR NEGATIVE (NEGATIVE); PHENCYCLIDINE, UR NEGATIVE (NEGATIVE)
[2018-05-07 15:16] VITALS: BP 116/72; PULSE 68; RESP 16; TEMP 98.6
--- NOTE | 2018-05-07 15:55 | RAD ---
Date of service: 05/07/2018 HISTORY: dizzy COMPARISON: No prior. FINDINGS: LUNGS: Mild venous congestion. PLEURA: No significant pleural effusion identified, no pneumothorax apparent. CARDIOVASCULAR: No atherosclerotic calcification present Normal. OSSEOUS STRUCTURES: No significant abnormalities. VISUALIZED UPPER ABDOMEN: Normal. OTHER FINDINGS: None. IMPRESSION: Mild venous congestion.
--- NOTE | 2018-05-09 19:30 | CARD ---
APPROVED REPORT Date of service: 05/07/2018 EKG Measurement Heart [id number] <Conclusion> Normal sinus rhythm Normal ECG
== END 2018-05-07 15:23 | disposition home or self-care (01) ==
LOC: C.ER 13:03
DX: F41.9 Anxiety disorder, unspecified (principal); R55 Syncope and collapse; E78.00 Pure hypercholesterolemia, unspecified; F32.9 Major depressive disorder, single episode, unspecified

== ENCOUNTER 2018-05-15 12:43 | Emergency (ER) | payer MEDICAID, OTHER ==
[2018-05-15 12:58] VITALS: BMI 36.0
[2018-05-15 13:01] VITALS: BP 134/89; PULSE 97; RESP 18; TEMP 98.7; O2SAT 98
--- NOTE | 2018-05-15 13:35 | RAD ---
PROCEDURE: Right Hand Radiographs. HISTORY: RIGHT HAND PAIN AFTER PUNCHING COMPARISON: None. FINDINGS: BONES: No obvious fracture. JOINTS: Flexion of the fingers, otherwise unremarkable. SOFT TISSUES: Normal. OTHER FINDINGS: None. IMPRESSION: No obvious fracture within the study limitations
--- NOTE | 2018-05-15 13:55 | C.PDOC ---
History Of Present Illness 43y/o male presents to the ED for evaluation of right hand injury sustained yesterday. Yesterday at work he got into an argument, and afterwards punched a wall with his right hand. Now complaining of pain to hand. Denies any other injuries. States it is painful to extend the digits. Denies any sensory changes. Time Seen by Provider: 05/15/18 13:02 Chief Complaint (Nursing): Finger,Hand,&Wrist History Per: Patient History/Exam Limitations: no limitations Onset/Duration Of Symptoms: Days Current Symptoms Are (Timing): Still Present Past Medical History Reviewed: Historical Data, Nursing Documentation, Vital Signs Vital Signs: Last Vital Signs Temp 98.7 F 05/15/18 12:58 Pulse 97 H 05/15/18 12:58 Resp 18 05/15/18 12:58 BP 134/89 05/15/18 12:58 Pulse Ox 98 05/15/18 12:58 - Medical History PMH: Anxiety, Depression, Hypercholesterolemia Denies: Chronic Kidney Disease Family History: States: Unknown Family Hx - Social History Hx Alcohol Use: No (Social) Hx Substance Use: No - Immunization History Hx Tetanus Toxoid Vaccination: No Hx Influenza Vaccination: No Hx Pneumococcal Vaccination: No Review Of Systems Musculoskeletal: Positive for: Hand Pain Skin: Negative for: Lesions Neurological: Negative for: Weakness, Numbness, Incoordination Physical Exam - Physical Exam Appears: Non-toxic, No Acute Distress Skin: Normal Color, Warm Extremity: Normal ROM (with intact ROM of digits and wrist), Tenderness (Mildly TTP along MCP joints), Capillary Refill (less than 2 sec), No Deformity, Swelling (mildly swollen to dorsum of right hand) Pulses: Left Radial: Normal, Right Radial: Normal Neurological/Psych: Oriented x3, Normal Motor, Normal Sensation ED Course And Treatment O2 Sat by Pulse Oximetry: 98 (RA) Pulse Ox Interpretation: Normal - Other Rad XR right hand X-Ray: Read By Radiologist Interpretation: FINDINGS: BONES: No obvious fracture. JOINTS: Flexion of the fingers, otherwise unremarkable. SOFT TISSUES: Normal. OTHER FINDINGS: None. IMPRESSION: No obvious fracture within the study limitations Progress Note: Tylenol PO given for pain. X-ray taken of right hand, negative for fracture. MELI wrap and arm sling provided. Patient advised to follow up with hand surgery for further evaluation. Disposition Counseled Patient/Family Regarding: Studies Performed, Diagnosis, Need For Followup, Rx Given - Disposition Referrals: Yoly Alcantar MD [Staff Provider] - Shaik Marquez MD [Staff Provider] - Disposition: HOME/ ROUTINE Disposition Time: 13:55 Condition: STABLE Additional Instructions: FOLLOW UP WITH HAND SURGEON WITHIN 1 WEEK IF PAIN PERSISTS USE PAIN MEDICATION NEEDED ELEVATE HAND MUCH POSSIBLE, USE ICE FOR SWELLING RETURN TO ER IF SYMPTOMS WORSEN Prescriptions: Naproxen 375 mg PO BID PRN #20 tablet PRN Reason: pain Instructions: Contusion (DC), Sprain (DC) Forms: [employer] (Latvian) Print Language: SALVADOREAN - POA Present On Arrival: Falls Or Trauma - Clinical Impression Clinical Impression: Sprain of right hand, Contusion of hand - Scribe Statement The provider has reviewed the documentation as recorded by the Reddy Rose Provider Attestation: All medical record entries made by the Reddy were at my direction and personally dictated by me. I have reviewed the chart and agree that the record accurately reflects my personal performance of the history, physical exam, medical decision making, and the department course for this patient. I have also personally directed, reviewed, and agree with the discharge instructions and disposition.
== END 2018-05-15 13:58 | disposition home or self-care (01) ==
LOC: C.ER 12:43
DX: S63.91XA Sprain of unspecified part of right wrist and hand, initial encounter (principal); S60.221A Contusion of right hand, initial encounter; W22.01XA Walked into wall, initial encounter; Y92.89 Other specified places as the place of occurrence of the external cause